=== PATIENT | female | born 1990 | race Caucasian/White ===

== ENCOUNTER 2016-04-08 15:37 | Emergency (ER) | payer SELFPAY ==
[2016-04-08 16:01] VITALS: BP 130/74
--- NOTE | 2016-04-08 16:32 | ED Physician Documentation ---
Female Urogenital Problems - HISTORIAN Historian: patient - HPI Stated Complaint: vaginal bleeding Chief Complaint: Female Urogenital Problems Onset: days ago Severity: other (no pain) Further Comments: yes ( [facility]MP Feb 03, 2016. Started to have some spotting this AM after intercourse, notice some light cramping today, had some bloody discharge/tissue with wiping about the size of her hand. No pain or fever noted. Patient had pregnncy test done Apr 04 and positive.) - Vaginal Bleeding Compared to Menstrual Periods: program attendant [facility]MP (Last Known Menstrual Period): 02/03/16 : 1 Para: 0 : 0 Where was Test Done: clinic (urine) Care: No Sexual History: active Contraceptive: none - Associated Symptoms Urinary Symptoms: none Discharge: denies: vaginal discharge, vaginal fluid leakage - ROS CONST: none. denies: fever, chills GI/: denies: nausea, vomiting, bloody stools CVS/RESP: denies: chest pain - PAST HX Past History: none. denies: spontaneous, induced Other History: none Surgeries/Procedures: none Allergies/Adverse Reactions: Allergies Allergy/AdvReac Type Severity Reaction Status Date / Time No Known Allergies Allergy Verified 04/08/16 15:54 Home Medications: Ambulatory Orders Medication Instructions Recorded NK [NK] 04/08/16 - SOCIAL HX Smoking History: non-smoker Alcohol Use: none Drug Use: none - FAMILY HX Family History: none - VITAL SIGNS Vital Signs: Vital Signs Temp Pulse Resp BP Pulse Ox 98.2 F 80 20 130/74 99 04/08/16 15:55 04/08/16 15:55 04/08/16 15:55 04/08/16 15:55 04/08/16 15:55 - REVIEWED ASSESSMENTS Nursing Assessment Reviewed: Yes Vitals Reviewed: Yes Female Urogenital Problems - EXAM General Appearance: no acute distress, alert Respiratory: no resp. distress, breath sounds nml, respiratory distress. No: wheezes, rales, rhonchi CVS: reg rate & rhythm, heart sounds normal, equal pulses, no murmur, no gallop Abdomen: soft, non-tender, no organomegaly, no distention, nml bowel sounds. No : guarding, rebound Pelvic: external exam nml, speculum exam nml, active bleeding, mild, blood in vaginal vault, cerv.motion tenderness (minimal), enlarged uterus. No: cervical dilation, adnexal tenderness (R), adnexal tenderness (L), mass (R), mass (L) Back: non-tender, painless ROM Extremities: non-tender Neuro: oriented X3, mood/affect nml Discharge Clincal Impression: Vaginal bleeding before 22 weeks gestation Referrals: Leyla Almonte MD [Primary Care Provider] - 2 Days Additional Instructions: Get established with an candles pourer next week to have an US done and to get Rhogam. If your bleeding becomes heavy to return to the ED for further evaluation. Home Medications: Ambulatory Orders NK [NK] 04/08/16 Disposition: 01 HOME, SELF-CARE Decision to Admit: [id number] Date of Decison to Admit: 04/08/16 Decision Time: 18:51
[2016-04-08 17:42] LABS: COLOR,URINE Yellow (YELLOW); OCCULT BLOOD,URINE 3+ (NEGATIVE); PH URINE 5.5 (5.0 - 8.0); UROBILINOGEN URINE 0.2 Eu (0.2-1.0)
[2016-04-08 17:46] LABS: APPEARANCE,URINE CLOUDY (CLEAR)
== END 2016-04-08 19:00 | disposition home or self-care (01) ==
LOC: ED 15:37
DX: O20.0 Threatened abortion (principal); Z3A.10 10 weeks gestation of pregnancy
CPT/HCPCS: 81002; 84702; 86900; 86901; 87801; 99282; 99283